=== PATIENT | male | born 1995 | race Caucasian/White ===

== ENCOUNTER 2024-10-15 12:42 | Inpatient (IN) | payer BC, SELFPAY ==
[2024-10-15] VITALS (10 sets, daily range): BP systolic 98–133; BP diastolic 62–76; PULSE 73–158; RESP 12–20; TEMP 36.7; O2SAT 95–100; BMI 24.0
--- NOTE | 2024-10-15 12:50 | XR_ITS ---
WS: [id number] Exam: XR chest 1V portable [id number] Date/Time of Exam: 10/15/2024 12:57 PM Reason For Exam: palpitations No priors. Lungs are fully inflated and clear. Normal cardiomediastinal silhouette and bony structures. No pleural effusion. XR/XR chest 1V portable [id number] IMPRESSION: 1. Normal chest.
--- NOTE | 2024-10-15 12:50 | ECG_ITS ---
[facility] Test Date: 2024-10-15 Pat Name: Manfred Fletcher Department: Room: Gender: Male Director Informatics: : 1995 Requested By: Cedric Ashraf Order Number: [id number] Valeria MD: Nanda Johnson M.D. Measurements Intervals Hubbard Rate: 149 P: 0 MD: 0 QRS: 94 QRSD: 94 T: 30 QT: 267 QTc: 421 Interpretive Statements ATRIAL FIBRILLATION WITH RAPID VENTRICULAR RESPONSE BORDERLINE RIGHT AXIS DEVIATION [QRS AXIS > 90] INCOMPLETE RIGHT BUNDLE BRANCH BLOCK [90+ ms QRS DURATION, TERMINAL R IN V1/V2, 40+ ms S IN I/aVL/V4/V5/V6] MINIMAL ST DEPRESSION [0.025+ mV ST DEPRESSION] ABNORMAL RHYTHM ECG No previous ECG available for comparison Electronically Signed On 10-15-2024 20:01:30 CDT by Nanda Johnson M.D. [id number]
--- OUTSIDE RECORDS SUMMARY | 2024-10-15 12:51 | XMS_ITS | Clinical Summary ---
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 Name Role Phone Unavailable Primary Care Provider Unavailabl e Allergies Active Allergy Reactions Criticality Noted Date Comments Penicillins Rash Low 03/14/2024 Medications No known medications Active Problems No known active problems Encounters Date Type Department Care Team Description 09/24/2024 External Device Data ST[facility] ABSTRACTION Provider, Abstract 08/28/2024 External Device Data [facility] ABSTRACTION Provider, Abstract 08/28/2024 External Device Data [facility] ABSTRACTION Provider, Abstract from Last 3 Months Social History Tobacco Use Types Packs/Day Years Used Date Smoking Tobacco: Never Assessed Sex and Gender Information Value Date Recorded Sex Assigned at Not on file Legal Sex Male 12:27 PM 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 Gender Identity Not on file Sexual Orientation Not on file Last Filed Vital Signs Vital Sign Reading Time Taken Comments Blood Pressure 133/85 03/14/2024 12:34 PM 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 Pulse 87 03/14/2024 12:34 PM 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 Temperature 36.8 C (98.2 F) 03/14/2024 12:34 PM [employer]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 Respiratory Rate 19 03/14/2024 12:34 PM [employer]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 Oxygen Saturation 100% 03/14/2024 12:34 PM 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 Inhaled Oxygen Concentration - - Weight 74.8 kg (165 lb) 03/14/2024 12:34 PM [employer]AX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 Height 180.3 cm (5' 11 ) 03/14/2024 12:34 PM [employer]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 Body Mass Index 23.01 03/14/2024 12:34 PM [employer]AX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 Plan of Treatment Health Maintenance Due Date Last Done Comments DTAP/TDAP/TD VACCINES (1 - Tdap) 08/12/2014 HEPATITIS B VACCINES (1 of 3 - 19+ 3-dose series) 08/12/2014 INFLUENZA VACCINE (#1) 2024 HPV VACCINES Aged Out No longer eligi ble based on patient's age to complete this topic
[2024-10-15] MEDS: dilTIAZem 5 mg/mL SDV 5 mL 20 MG IVP (12:57)
--- NOTE | 2024-10-15 12:59 | ED_ITS ---
HPI - Arrhythmia/Palpitations 2 General: Chief Complaint: Arrhythmia/Palpitations Stated Complaint: Afib Time Seen by Provider: 10/15/24 12:47 Source: patient Mode of arrival: ambulatory Limitations: no limitations History of Present Illness: 29-year-old male who states that he is h aving palpitations on the last 2 days patient seen in his primary care office found of A-fib with RVR and was sent here. He states he does not like his heart is racing no history of A-fib he denies any chest pain denies any drug or alcohol abuse. Associated symptoms: Deny nausea or vomiting Related Data Home Medications ?Medication ?Instructions ?Recorded ?Confirmed No Known Home Medications 10/15/240 01/01 Allergies Allergy/AdvReac Type Severity Reaction Status Date / Time Penicillins Allergy ALGY-Rash Verified 10/15/24 11:34 Review of Systems 2 Const: Denies: fever(s), chills, body aches or change in appetite ENMT: Denies: throat pain or dental pain Card: Reports: irregular heart rhythm; Denies: chest pain Resp: Denies: dyspnea GI: Denies: abdominal pain, nausea, vomiting or diarrhea : Denies: dysuria Musc: Denies: neck pain or back pain Skin/Breast: Denies: rash Neuro: Denies: headache(s) PFSH ED 2 PFSH: Social History Smoking and tobacco/nicotine status: never used tobacco/nicotine Physical Exam 2 Const: COMMON NORMALS: patient oriented x3 HENMT: COMMON NORMALS: normocephalic and atraumatic HEAD & SCALP: n ormocephalic and atraumatic Eye: COMMON NORMALS: Equal, round and reactive pupils present and EOMs intact bilaterally PUPIL: Yes Equal, round and reactive pupils present Neck/C-Spine: COMMON NORMALS: full ROM and supple Chest: COMMONS NORMALS: normal inspection of the chest Resp: COMMON NORMALS: normal respiratory effort, No retractions, No use of accessory muscles and clear to auscultation bilaterally AUSCULTATION: clear to auscultation bilaterally Cardio: COMMON NORMALS: No murmurs present (Cardio) RATE: tachycardic R HYTHM: abnormal rhythm irregularly irregular GI: COMMON NORMALS: Normal to inspection, nondistended, normoactive bowel sounds present, Soft to palpation, non-tender and no masses PALPATION: Yes Soft to palpation Extremity: COMMON NORMALS: normal to inspection and full ROM Neuro: COMMON NORMALS: patient oriented x3, moves all extremities and no focal motor deficits Psych: COMMON NORMALS: mental status grossly normal, Normal thought process present and cooperative THOUGHT PROCESS: Normal thought process present Skin: COMMON NORMALS: no rashes or lesions noted and no wounds GENERAL SKIN EXAM: no rashes or lesions noted Course 2 Vital Signs: Vital signs: Vital Signs Temperature 98.1 F 10/15/24 12:43 Pulse Rate 158 H 10/15/24 12:43 Respiratory Rate 20 H 10/15/24 12:43 Blood Pressure 113/62 10/15/24 12:43 Pulse Oximetry 100 10/15/24 12:43 Oxygen Delivery Me thod Room Air 10/15/24 12:43 MDM - Arrhythmia/Palpitations Medical Decision Making Patient presents here with new onset A-fib with RVR patient was given Cardizem here on Cardizem drip his heart rate has improved spoke to hospitalist will admit. Medical Records I reviewed the patient's medical records. Lab Data I reviewed the patient's lab results. 10/15/24 12:34 10/15/24 12:34 Radiology Impressions Chest X-Ray 10/15/24 12:50 IMPRESSION: 1. Normal chest. Laboratory Results WBC 8.13 10^3/uL (3.29-11.43) 10/15/24 12:34 RBC 5.65 10^6/uL (3.85-5.65) 10/15/24 12:34 Hgb 15.90 g/dL (11.27-16.99) 10/15/24 12:34 Hct 47.3 % (37-53) 10/15/24 12:34 MCV 83.7 fl (82-101) 10/15/24 12:34 MCH 28.1 pg (27-33) 10/15/24 12:34 MCHC 33.6 g/dL (30-55) 10/15/24 12:34 RDW 12.7 % (12.1-15.1) 10/15/24 12:34 Plt Count 212 10^3/cmm (157-399) 10/15/24 12:34 MPV 10.5 fL (7.4-10.4) H 10/15/24 12:34 Neut % (Auto) 58.7 % 10/15/24 12:34 Lymph % (Auto) 28.8 % 10/15/24 12:34 [place] % (Auto) 9.6 % 10/15/24 12:34 Eos % (Auto) 2.1 % 10/15/24 12:34 Baso % (Auto) 0.4 % 10/15/24 12:34 Neut # (Auto) 4.78 10^3/uL (1.8-7.7) 10/15/24 12:34 Lymph # (Auto) 2.3 10^3/uL (0.8-4.8) 10/15/24 12:34 [place] # (Auto) 0.8 10^3/uL (0.2-0.9) 10/15/24 12:34 Eos # (Auto) 0.2 10^3/uL (0.0-0.8) 10/15/24 12:34 Baso # (Auto) 0.0 10^3/uL (0.0-0.1) 10/15/24 12:34 Nucleated RBC % (auto) 0 % 10/15/24 12:34 Nucleated RBCs # 0.0 /100WBC 10/15/24 12:34 Sodium 142 mmol/L (136-145) 10/15/24 12:34 Potassium 3.7 mmol/L (3.5-5.1) 10/15/24 12:34 Chloride 104 mmol/L (98-107) 10/15/24 12:34 Carbon Dioxide 25 mmol/L (22-29) 10/15/24 12:34 Anion Gap 16.7 (5-19) 10/15/24 12:34 BUN 16 mg/dL (6-20) 10/15/24 12:34 Creatinine 1.0 mg/dL (0.7-1.2) 10/15/24 12:34 GFR Calculation 88.3 mL/min (90-130) L 10/15/24 12:34 Glucose 88 mg/dL (65-115) 10/15/24 12:34 Calculated Osmolality 295 mOsm/kg (285-295) 10/15/24 12:34 Calcium 9.7 mg/dL (8.5-10.5) 10/15/24 12:34 Total Bilirubin 0.4 mg/dL (0.15-1.2) 10/15/24 12:34 AST 21 U/L (0-40) 10/15/24 12:34 ALT 24 U/L (0-41) 10/15/24 12:34 Alkaline Phosphatase 52 U/L (40-130) 10/15/24 12:34 Total Protein 7.1 g/dL (6.6-8.7) 10/15/24 12:34 Albumin 4.6 g/dL (3.5-5.2) 10/15/24 12:34 Globulin 2.5 g/dL (1.3-4.6) 10/15/24 12:34 TSH 2.66 uIU/mL (0.27-4.20) 10/15/24 12:34 All radiology interpretation(s) finalized by discharge EKG Data EKG 1: I personally reviewed and interpreted this EKG as follows: EKG interpretation date: 10/15/24 EKG interpretation time: 12:47 Interpretation: afib with rvr hr [address] or t wave abnormalities qrs 94 qtc 352 Other EKG comments: Chest X-Ray 10/15/24 12:50 IMPRESSION: 1. Normal chest. Discharge Plan Discharge Patient Disposition: Admitted As Inpatient Clinical Impression: Atrial fibrillation with RVR Condition: Stable Coding Level of Care Code ED Housekeeping Assistant for Jonathan Estrella
[2024-10-15] MEDS: dilTIAZem 100 MG in sodium chloride 0.9% (add-van) 100 ML IV (13:00)
[2024-10-15 13:03] LABS: Hematocrit 47.3 % (37-53); Hemoglobin 15.90 g/dL (11.27-16.99); Mean Corpuscular HGB Conc 33.6 g/dL (30-55); Mean Corpuscular Hemoglobin 28.1 pg (27-33); Mean Corpuscular Volume 83.7 fl (82-101); Nucleated Red Blood Cells % 0 %; Platelet Count 212 10^3/cmm (157-399); Red Blood Count 5.65 10^6/uL (3.85-5.65); White Blood Count 8.13 10^3/uL (3.29-11.43)
[2024-10-15 13:29] LABS: Alanine Aminotransferase 24 U/L (0-41); Albumin Level 4.6 g/dL (3.5-5.2); Alkaline Phosphatase 52 U/L (40-130); Anion Gap 16.7 (5-19); Aspartate Amino Transferase 21 U/L (0-40); Blood Urea Nitrogen 16 mg/dL (6-20); Calcium 9.7 mg/dL (8.5-10.5); Carbon Dioxide 25 mmol/L (22-29); Chloride 104 mmol/L (98-107); Creatinine Clr Calc Pharmacy 117.7636; Globulin 2.5 g/dL (1.3-4.6); Glucose 88 mg/dL (65-115); Osmolality Calculated 295 mOsm/kg (285-295); Potassium 3.7 mmol/L (3.5-5.1); Sodium 142 mmol/L (136-145); Thyroid Stimulating Hormone 2.66 uIU/mL (0.27-4.20); Total Protein 7.1 g/dL (6.6-8.7)
--- NOTE | 2024-10-15 14:20 | P.HP_ITS ---
Providers/Chief Complaint 2 Chief Complaint: Afib History of Present Illness Manfred Fletcher is a 29 year old male with no significant past medical history presents to the ER today from his PCPs office because of palpitations. He was found to have A-fib with RVR at his PCPs office hence he was sent to the ER. As per the patient he woke up earlier today morning at 5 AM, worked out a little more than he like he usually do and few minutes later he started feeling palpitations along with some difficulty in breathing. Patient states in the past as well if he has missed his workout for a week on first day he does have palpitations. States he has been working out for over 13 years. Denies use of any IV drugs, smoking, history of any cardiac issues or family history of sudden cardiac , any [id number] products other than protein shakes or analog use. In the ER he was found to have A-fib with RVR with heart rate of more than 150 and was started on Cardizem drip. On examination seen with family at bedside with heart rate mostly running in mid to high 90s. Review of Systems 2 General: Reports: 10 or more systems reviewed and unremarkable except in HPI and below Const: Denies: fever(s), chills, body aches, change in appetite, change in weight, malaise, night sweats, diaphoresis, change in sleep pattern, daytime sleepiness or snoring Eyes: Denies: change in vision, blurry vision, photophobia, eye discomfort or eye discharge ENMT: Denies: throat pain, enlarged tonsils, hoarseness, mouth pain, oral sores, dry mouth, tinnitus, nasal congestion or post nasal drip Card: Denies: chest pain, palpitations, irregular heart rhythm, edema, swelling of feet/ankles, lightheadedness, syncope, pre-syncope, dyspnea on exertion, orthopnea, leg pain with exertion or acrocyanosis Resp: Denies: dyspnea, productive cough, non-productive cough, wheezing, stridor, pain on inspiration, change in phlegm color, hemoptysis or chest congestion GI: Denies: abdominal pain, nausea, vomiting, hematemesis, coffee ground emesis, dysphagia, heartburn, diarrhea, constipation, bloating, GI cramping, change in bowel habits, pain on defecation, hematochezia or melena : Denies: flank pain, difficulty urinating, dysuria, urinary frequency, urinary urgency, urinary hesitancy, urinary dribbling, difficulty starting urination, change in urine stream, nocturia or hematuria Musc: Denies: neck pain, back pain, extremity pain, joint pain, joint swelling, joint redness, joint stiffness or limited range of motion Neuro: Denies: headache(s), numbness in extremities, weakness in extremities, sensory changes, lack of coordination, difficulty walking, frequent falls, dizziness, vertigo, confusion, Slurred speech present, difficulty communicating thoughts or seizure-like activity Psych: Denies: anxiety, depression, mood swings, panic attacks, hopelessness or irritability Endo: Denies: polyuria, polydipsia, tired all the time, cold intolerance, excessive sweating, flushing or heat intolerance Ivan/Lymph: Denies: easy bruising or easy bleeding All/Imm: Denies: tongue swelling, facial swelling or acute wheezing Medications/Allergies Home Medications ?Medication ?Instructions ?Recorded ?Confirmed ?Last Taken ?Type No Known Home Medications 10/15/2401/01 Unknown History Allergies Allergy/AdvReac Type Severity Reaction Status Date / Time Penicillins Allergy ALGY-Rash Verified 10/15/24 11:34 PFSH Acute 2 PFSH: Medical History (Updated 10/15/24 @ 15:00 by Dino Trammell MD) No significant past medical history Surgical History (Updated 10/15/24 @ 15:00 by Dino Trammell MD) No significant past surgical history Family History (Updated 10/15/24 @ 15:00 by Dino Trammell MD) Denies family history of CAD (coronary artery disease) Cancer Cardiomyopathy Social History (Updated 10/15/24 @ 15:00 by Dino Trammell MD) Smoking and tobacco/nicotine status: never used tobacco/nicotine Substance/Drug Use: never Adopted: No Caregiver/support person: Yes Lives independently: Yes Household members: family Housing: House Vitals/I&O/Wt Last Vital Signs Temp 98.1 F 10/15/24 12:43 Pulse 158 H 10/15/24 12:43 Resp 20 H 10/15/24 12:43 BP 113/62 10/15/24 12:43 Pulse Ox 100 10/15/24 12:43 O2 Del Method Room Air 10/15/24 12:43 Weight last 48 hrs Weight 78.018 kg Physical Exam 2 Narrative: General: No acute distress, AO x3 HEENT: PERRLA, pupils bilaterally equal and reactive Chest: Normal vesicular breath sounds, no added sounds, equal good air entry bilaterally CVS: S1-S2 irregularly irregular, no murmurs, no tachycardia, no gallops, no rubs Abdomen: Soft, nontender, no organomegaly, bowel sounds present Neuro: No focal deficits, no facial deformity, AO x3, power 5/5 in all limbs Data 10/15/24 12:34 10/15/24 12:34 A&P Assessment and plan 1. Atrial fibrillation with RVR: Normal TSH. Check urine drug screen. Denies any recreational drug use or gril-eoc-hydkurn product use. Currently on Cardizem drip of 5. Start on Cardizem 30 mg Q6 hourly. Been keeping heart rate below 100. Echocardiogram once heart rate is below 100. Will consult cardiology for possible cardioversion given patient's age of 29 and first episode of A-fib. 2. Paroxysmal atrial fibrillation: Plan: Full code Cardiac diet Low chances of VTE Famotidine for PUD prophylaxis PDMP PDMP Reviewed: Not Reviewed Attestations 2 Medical Necessity Statement*: Admission for more than 2 midnights for management of A-fib with RVR in a young man with possible need for cardioversion Diagnoses Atrial fibrillation with RVR I48.91 Paroxysmal atrial fibrillation I48.0 Atrial fibrillation type: paroxysmal
--- NOTE | 2024-10-15 14:22 | USCV_ITS ---
Manfred Fletcher Age: 29 Gender: M : 1995 Exam Date: 10/15/2024 19:51 Ordering Phys: Dino Trammell MD Technologist: [place] Exam Location: [facility] [place] Indication: Afib, BP: 112 / 72 HR: 58 Rhythm: Sinus Technical Quality: Good MEASUREMENTS (Male / Female) Normal Values 2D ECHO LV Diastolic Diameter PLAX 4.7 cm 4.2 - 5.9 / 3.9 - 5.3 cm IVS Diastolic Thickness 0.9 cm 0.6 - 1.0 / 0.6 - 0.9 cm IVS Systolic Thickness 1.7 cm LVPW Diastolic Thickness 1.1 cm 0.6 - 1.0 / 0.6 - 0.9 cm LVPW Systolic Thickness 1.6 cm LVOT Diameter 1.7 cm LV Ejection Fraction 2D Teich 55.8 % LV Ejection Fraction MOD 4C 59.0 % LV Ejection Fraction MOD 2C 65.2 % LV Ejection Fraction 2C AL 65.6 % LA Diameter 2.3 cm Aorta at Sinotubular Diameter 3.1 cm IVC Diameter 1.1 cm M-MODE LA Ao Ratio MM 1.1 AV Cusp Separation MM 2.0 cm DOPPLER AV Peak Velocity 127.0 cm/s LVOT Peak Velocity 102.0 cm/s AV Area Cont Eq vti 2.2 cm squared AV Area Cont Eq pk 1.9 cm squared MV Peak Velocity 122.0 cm/s MV Area PHT 3.5 cm squared Mitral E to A Ratio 2.6 TR Peak Velocity 206.0 cm/s TR Peak Gradient 17.0 mmHg TV Peak E Velocity 58.0 cm/s PV Peak Velocity 91.0 cm/s FINDINGS Left Ventricle Left ventricle is normal in size. LV systolic function is normal with EF of 55-60%. No regional wall motion abnormalities are seen. Right Ventricle Normal in size and function Right Atrium Normal in size Left Atrium Normal in size Mitral Valve Structurally normal mitral valve. Mild mitral regurgitation. Aortic Valve Structurally normal aortic valve. No significant stenosis or regurgitation. Tricuspid Valve Insufficient TR jet to calculate RVSP Pulmonic Valve Not well visualized Pericardium Normal Aorta Normal in size IVC Appears to be normal CONCLUSIONS LV systolic function is normal with EF of 55-60% Mild mitral regurgitation No comparison studies are available. Guillermo Dickinson MD (Electronically Signed) Final Date: 16 October 2024 16:38 S
[2024-10-15 14:49] LABS: Procalcitonin 0.07 ng/mL (0-0.5)
[2024-10-15 15:43] LABS: Glucose Urine UA Negative (Normal); Nitrate Urine Negative (Negative); Specific Gravity, Urine 1.020 (1.005-1.030)
--- NOTE | 2024-10-15 15:44 | P.CONIM_ITS ---
<Statement entered by Guillermo Dickinson M.D - 10/19/24 13:41> Patient was evaluated and cared for in conjunction with an advanced practice practitioner.? I personally examined the patient and reviewed the chart and all pertinent data including imaging, telemetry, and laboratory results.? I discussed the patient in detail with the advanced practice practitioner.? Please see? their note for complete consult note, testing results and agreed upon plan of care for the patient. ? GENERAL: Patient is alert, awake and oriented x3. HEART: Irregularly irregular, tachycardia LUNGS: Clear to auscultate bilaterally. CENTRAL NERVOUS SYSTEM: Grossly nonfocal. EXTREMITIES: Lower extremities with out edema bilaterally. If patient does not convert back to sinus rhythm, we will proceed with RAMBO cardioversion tomorrow. NPO past midnight. As outpatient will need EP referral for possible ablation. Providers/Reason For Consult 2 Consulting Physician/Specialty*: Dr Dickinson, cardiology Reason for Consult*: new onset atrial fibrillation Requesting Physician: Dino Trammell MD Attending Physician: Dino Trammell MD History of Present Illness History of Present Illness Manfred Fletcher is a 29 year old male with no significant past medical history. He [facility] to [facility] this morning with rapid heart rate since 630 this morning. He notes he has had episodes like this twice before usually in conjunction with exercise, always resolved spontaneously. Each time he has felt lightheaded with movement with some shortness of breath and sensation of pounding heart. Has not had any chest pain or syncope. He has never been diagnosed with asthma, however has felt perhaps he had exercised induced asthma which has improved as he has gotten older. He used an albuterol inhaler and took a dose of cetirizine this morning for allergies. He denies any drug use, alcohol use, smoking. No history of thyroid abnormality, does not use any supplements [id number]. He drinks perhaps 2 cups of coffee in a day and consumes quite a bit of green tea. He denies use of energy drinks. His mother at the bedside notes history of Raynaud's syndrome, joint laxity and a curved out sternum which was more pronounced when he was younger, seems to be consistent with pectus carinatum. Family history of an unknown autoimmune condition in patient's father, resulting in insulin-dependent diabetes. Patient is not diabetic and has never had any cardiac workup previous to this. Review of Systems 2 Const: Denies: fever(s), chills, change in weight, fatigue or diaphoresis Eyes: Denies: change in vision ENMT: Denies: epistaxis Card: Reports: palpitations and irregular heart rhythm; Denies: chest pain, edema, syncope, pre-syncope, dyspnea on exertion, orthopnea or leg pain with exertion Resp: Denies: dyspnea, productive cough or wheezing GI: Denies: nausea, vomiting, hematemesis, hematochezia or melena : Denies: hematuria Musc: Denies: extremity swelling Ivan/Lymph: Denies: easy bruising or easy bleeding Medications/Allergies Home Medications ?Medication ?Instructions ?Recorded ?Confirmed ?Last Taken ?Type No Known Home Medications 10/15/24 0701/01 Unknown History Allergies Allergy/AdvReac Type Severity Reaction Status Date / Time Penicillins Allergy ALGY-Rash Verified 10/15/24 11:34 Current Medications Generic Name Dose Route Start Last Admin Trade Name Freq PRN Reason Stop Dose Admin Diltiazem HCl 30 mg 10/15/24 14:47 10/15/24 15:10 Diltiazem 30 Mg Tablet PO 30 mg Q6H ANTON Administration Diltiazem HCl 100 mg/ Sodium 100 mls @ 0 mls/hr 10/15/24 13:00 10/15/24 15:03 Chloride IV 7.5 mg/hr .Q0M ANTON 7.5 mls/hr Protocol Titration Per Protocol PFSH Acute 2 PFSH: Medical History No significant past medical history Surgical History No significant past surgical history Family History Denies family history of CAD (coronary artery disease) Cancer Cardiomyopathy Social History Smoking and tobacco/nicotine status: never used tobacco/nicotine Substance/Drug Use: never Adopted: No Caregiver/support person: Yes Lives independently: Yes Household members: family Housing: House Vitals/I&O/Wt Last Vital Signs Temp 98.1 F 10/15/24 12:43 Pulse 158 H 10/15/24 12:43 Resp 20 H 10/15/24 12:43 BP 113/62 10/15/24 12:43 Pulse Ox 100 10/15/24 12:43 O2 Del Method Room Air 10/15/24 12:43 10/15/24 10/15/24 10/15/24 06:59 14:59 22:59 Intake Total .01.31 Balance 01.31 Weight last 48 hrs Weight 172 lb Physical Exam 2 Const: COMMON NORMALS: no acute distress and patient oriented x3 Chest: COMMONS NORMALS: normal inspection of the chest and normal palpation of entire chest wall CHEST: Yes Symmetrical chest wall rise Resp: COMMON NORMALS: normal respiratory effort, No retractions, No use of accessory muscles and clear to auscultation bilaterally EFFORT & INSPECTION: Yes symmetric chest movement AUSCULTATION: clear to auscultation bilaterally Cardio: COMMON NORMALS: S1 normal heart sound present, S2 normal heart sound present, No gallops present (Cardio), No clicks present (Cardio), No murmurs present (Cardio) and No rub (Cardio) RHYTHM: abnormal rhythm irregularly irregular HEART SOUNDS: S1 normal heart sound present and S2 normal heart sound present PERIPHERAL PULSES: radial pulses present, posterior tibial pulses present and dorsalis pedis present Neuro: COMMON NORMALS: patient oriented x3 and moves all extremities Psych: COMMON NORMALS: mental status grossly normal and cooperative Data 10/15/24 12:34 10/15/24 12:34 A&P Assessment and plan 1. Paroxysmal atrial fibrillation: Plan: He remains in atrial fibrillation, ventricular rate is well-controlled while on diltiazem infusion at 5 mg/h. Currently asymptomatic. Blood pressure stable. Suspicion for possible Marfan syndrome, echocardiogram has been ordered. If he remains in atrial fibrillation by tomorrow, plan is for possible RAMBO guided cardioversion. He resides in [place] and would need referral to a pump station operator there for continuity of care. Urine tox is negative. Other labs unremarkable. PDMP PDMP Reviewed: Not Reviewed Coding Level of Care Code Acute Code for Chg Fwd Diagnoses Paroxysmal atrial fibrillation I48.0 Atrial fibrillation type: paroxysmal
[2024-10-15 15:49] LABS: Add Urine Microscopic? YES
[2024-10-15 15:50] LABS: PCP Screen Urine Negative (Negative)
--- NOTE | 2024-10-15 16:00 | PC.NURSE ---
Patient transferred from ED to CSU via a bed at 1601. Patient was able to ambulate on his own from the hallway to room bed without difficulty. Patient currently has cardizem drip running at 7.5
[2024-10-16] VITALS: BP 105/53; PULSE 50; RESP 15; TEMP 36.7; O2SAT 97
[2024-10-16 03:59] LABS: Hematocrit 45.3 % (37-53); Hemoglobin 14.60 g/dL (11.27-16.99); Mean Corpuscular HGB Conc 32.2 g/dL (30-55); Mean Corpuscular Hemoglobin 27.8 pg (27-33); Mean Corpuscular Volume 86.3 fl (82-101); Nucleated Red Blood Cells % 0 %; Platelet Count 196 10^3/cmm (157-399); Red Blood Count 5.25 10^6/uL (3.85-5.65); White Blood Count 6.43 10^3/uL (3.29-11.43)
[2024-10-16 04:00] VITALS: BP 104/55; PULSE 53; RESP 15; TEMP 36.7; O2SAT 97
[2024-10-16 04:33] LABS: Alanine Aminotransferase 20 U/L (0-41); Albumin Level 4.0 g/dL (3.5-5.2); Alkaline Phosphatase 42 U/L (40-130); Anion Gap 16.0 (5-19); Aspartate Amino Transferase 15 U/L (0-40); Blood Urea Nitrogen 14 mg/dL (6-20); Calcium 9.0 mg/dL (8.5-10.5); Carbon Dioxide 24 mmol/L (22-29); Chloride 107 mmol/L (98-107); Creatinine Clr Calc Pharmacy 90.5874; Globulin 2.1 g/dL (1.3-4.6); Glucose 96 mg/dL (65-115); Magnesium 2.1 mg/dL (1.7-2.3); Osmolality Calculated 296 mOsm/kg (285-295); Potassium 4.0 mmol/L (3.5-5.1); Sodium 143 mmol/L (136-145); Total Protein 6.1 g/dL (6.6-8.7)
[2024-10-16 04:34] LABS: Procalcitonin 0.07 ng/mL (0-0.5)
--- NOTE | 2024-10-16 05:35 | PC.NURSE ---
Patient converted to SR at 18:45. Dr Trammell was notified and cardizem was discontinued, oral and gtt. New orders were placed. Patient HR was dropping into the 40's. Dr Johnston was notified. No new orders placed.
[2024-10-16 06:00] VITALS: PULSE 52; BMI 23.8
--- NOTE | 2024-10-16 08:05 | P.PN_ITS ---
<Statement entered by Guillermo Dickinson M.D - 10/19/24 13:46> Patient was cared for in conjunction with an advanced practice practitioner.? I reviewed the chart and all pertinent data including imaging, telemetry, and laboratory results.? I discussed the patient in detail with the advanced practice practitioner.? Please see their note for complete progress note, testing results and agreed upon plan of care for the patient. Subjective 2 Subjective: He converted to sinus rhythm overnight so RAMBO guided cardioversion was canceled. Diltiazem has been turned off. Echocardiogram pending read. He feels well this morning. Creatinine 1.3, will give 500 mL fluid bolus. Vitals/I&O/Wt Last Vital Signs Temp 98.0 F 10/16/24 04:00 Pulse 56 L 10/16/24 11:41 Resp 15 10/16/24 11:41 BP 115/60 10/16/24 11:41 Pulse Ox 97 10/16/24 11:41 O2 Del Method Room Air 10/16/24 04:00 10/15/24 10/16/24 10/16/24 22:59 06:59 14:59 Intake Total 522.833 / 522.833 Balance 522.833 / 522.833 Weight last 48 hrs Weight 171 lb 6 oz Weight 172 lb Physical Exam 2 Const: COMMON NORMALS: no acute distress and patient oriented x3 GENERAL APPEARANCE: cooperative and comfortable ORIENTATION/CONSCIOUSNESS: Yes awake, Yes oriented to person, Yes oriented to place and Yes oriented to time Chest: COMMONS NORMALS: normal inspection of the chest and normal palpation of entire chest wall CHEST: Yes Symmetrical chest wall rise Resp: COMMON NORMALS: normal respiratory effort, No retractions, No use of accessory muscles and clear to auscultation bilaterally EFFORT & INSPECTION: Yes symmetric chest movement AUSCULTATION: clear to auscultation bilaterally Cardio: COMMON NORMALS: regular rate, regular rhythm, S1 normal heart sound present, S2 normal heart sound present, No gallops present (Cardio), No clicks present (Cardio), No murmurs present (Cardio) and No rub (Cardio) RATE: r egular rate RHYTHM: regular rhythm HEART SOUNDS: S1 normal heart sound present and S2 normal heart sound present PERIPHERAL PULSES: radial pulses present Extremity: COMMON NORMALS: no pedal edema Neuro: COMMON NORMALS: patient oriented x3 and moves all extremities S ENSORIUM/ORIENTATION: Yes oriented to person, Yes oriented to place and Yes oriented to time Data 10/16/24 03:11 10/16/24 03:11 A&P Assessment and plan 1. Paroxysmal atrial fibrillation: Plan: He can discharge home to [place] today with 30-day event monitor. I have referred him to Dr. Colon at [facility] for evaluation for atrial fibrillation ablation. He should continue full-strength aspirin. PDMP PDMP Reviewed: Not Reviewed Attestations 2 Medical Necessity Statement*: Discharge today Coding Level of Care Code Acute Code for Chg Fwd Diagnoses Paroxysmal atrial fibrillation I48.0 Atrial fibrillation type: paroxysmal
[2024-10-16 08:37] VITALS: BP 109/69; PULSE 63; RESP 24; O2SAT 94
--- NOTE | 2024-10-16 10:07 | PM.DCS ---
Discharge Providers Date of Admission: 10/15/24 15:00 Date of Discharge: October 16, 2024 Attending Provider at Admission: Dino Trammell MD Attending Provider at Discharge: Dino Trammell MD Consults: Cardiology: Dr. Dickinson Diagnoses at Discharge Discharge Diagnosis 1. Paroxysmal atrial fibrillation: Reason for Visit Reason for Visit: Afib Hospital Course Hospital Course Manfred Fletcher is a 29 year old male with no significant past medical history presents to the ER today from his PCPs office because of palpitations. He was found to have A-fib with RVR at his PCPs office hence he was sent to the ER. As per the patient he woke up earlier today morning at 5 AM, worked out a little more than he like he usually do and few minutes later he started feeling palpitations along with some difficulty in breathing. Patient states in the past as well if he has missed his workout for a week on first day he does have palpitations. States he has been working out for over 13 years. Denies use of any IV drugs, smoking, history of any cardiac issues or family history of sudden cardiac , any [id number] products other than protein shakes or analog use. In the ER he was found to have A-fib with RVR with heart rate of more than 150 and was started on Cardizem drip. On examination seen with family at bedside with heart rate mostly running in mid to high 90s. Overnight patient converted back to normal sinus rhythm and has maintained normal sinus rhythm. He denies any further complaints. During hospitalization his TSH was found to be normal. Echocardiogram was done and is pending. He has been discharged in hemodynamically stable condition with metoprolol 12.5 mg twice daily as needed for heart rate of more than 100 bpm, event monitor. He is also being referred to [facility] as an outpatient for further management. Discharge Data Studies Completed and Pending Completed Studies During Hospitalization Category Date Time Status XR chest 1V portable [id number] Stat Exams 10/15/24 12:50 Completed Pending at discharge Category Date Time Status Complete Blood Count w/Auto AM LABS Lab 10/17/24 04:00 Ordered Complete Blood Count w/Auto AM LABS Lab 10/18/24 04:00 Ordered Comprehensive Metabolic Panel AM LABS Lab 10/17/24 04:00 Ordered Comprehensive Metabolic Panel AM LABS Lab 10/18/24 04:00 Ordered Magnesium AM LABS Lab 10/17/24 04:00 Ordered Magnesium AM LABS Lab 10/18/24 04:00 Ordered Phosphorus AM LABS Lab 10/17/24 04:00 Ordered Phosphorus AM LABS Lab 10/18/24 04:00 Ordered CV. echo complete* [id number] Routine Ultrasound 10/15/24 14:22 Taken Radiology Impressions Chest X-Ray 10/15/24 12:50 IMPRESSION: 1. Normal chest. Laboratory Results WBC 6.43 10^3/uL (3.29-11.43) 10/16/24 03:11 RBC 5.25 10^6/uL (3.85-5.65) 10/16/24 03:11 Hgb 14.60 g/dL (11.27-16.99) 10/16/24 03:11 Hct 45.3 % (37-53) 10/16/24 03:11 MCV 86.3 fl (82-101) 10/16/24 03:11 MCH 27.8 pg (27-33) 10/16/24 03:11 MCHC 32.2 g/dL (30-55) 10/16/24 03:11 RDW 12.8 % (12.1-15.1) 10/16/24 03:11 Plt Count 196 10^3/cmm (157-399) 10/16/24 03:11 MPV 10.3 fL (7.4-10.4) 10/16/24 03:11 Neut % (Auto) 47.2 % 10/16/24 03:11 Lymph % (Auto) 40.4 % 10/16/24 03:11 [place] % (Auto) 7.6 % 10/16/24 03:11 Eos % (Auto) 3.6 % 10/16/24 03:11 Baso % (Auto) 0.6 % 10/16/24 03:11 Neut # (Auto) 3.03 10^3/uL (1.8-7.7) 10/16/24 03:11 Lymph # (Auto) 2.6 10^3/uL (0.8-4.8) 10/16/24 03:11 [place] # (Auto) 0.5 10^3/uL (0.2-0.9) 10/16/24 03:11 Eos # (Auto) 0.2 10^3/uL (0.0-0.8) 10/16/24 03:11 Baso # (Auto) 0.0 10^3/uL (0.0-0.1) 10/16/24 03:11 Nucleated RBC % (auto) 0 % 10/16/24 03:11 Nucleated RBCs # 0.0 /100WBC 10/16/24 03:11 Sodium 143 mmol/L (136-145) 10/16/24 03:11 Potassium 4.0 mmol/L (3.5-5.1) 10/16/24 03:11 Chloride 107 mmol/L (98-107) 10/16/24 03:11 Carbon Dioxide 24 mmol/L (22-29) 10/16/24 03:11 Anion Gap 16.0 (5-19) 10/16/24 03:11 BUN 14 mg/dL (6-20) 10/16/24 03:11 Creatinine 1.3 mg/dL (0.7-1.2) H 10/16/24 03:11 GFR Calculation 65.3 mL/min (90-130) L 10/16/24 03:11 Glucose 96 mg/dL (65-115) 10/16/24 03:11 Calculated Osmolality 296 mOsm/kg (285-295) H 10/16/24 03:11 Calcium 9.0 mg/dL (8.5-10.5) 10/16/24 03:11 Phosphorus 4.3 mg/dL (2.5-4.5) 10/16/24 03:11 Magnesium 2.1 mg/dL (1.7-2.3) 10/16/24 03:11 Total Bilirubin 0.4 mg/dL (0.15-1.2) 10/16/24 03:11 AST 15 U/L (0-40) 10/16/24 03:11 ALT 20 U/L (0-41) 10/16/24 03:11 Alkaline Phosphatase 42 U/L (40-130) 10/16/24 03:11 Total Protein 6.1 g/dL (6.6-8.7) L 10/16/24 03:11 Albumin 4.0 g/dL (3.5-5.2) 10/16/24 03:11 Globulin 2.1 g/dL (1.3-4.6) 10/16/24 03:11 Procalcitonin 0.07 ng/mL (0-0.5) 10/16/24 03:11 TSH 2.66 uIU/mL (0.27-4.20) 10/15/24 12:34 Urine Color Yellow (Yellow) 10/15/24 15:25 Urine Appearance Turbid (CLEAR) A 10/15/24 15:25 Urine pH 7.5 (5-7) 10/15/24 15:25 Ur Specific [place] 1.020 (1.005-1.030) 10/15/24 15:25 Urine Protein Negative (Negative) 10/15/24 15:25 Urine Glucose (UA) Negative (Normal) 10/15/24 15:25 Urine Ketones Negative (Negative) 10/15/24 15:25 Urine Blood Negative (Negative) 10/15/24 15:25 Urine Nitrate Negative (Negative) 10/15/24 15:25 Urine Bilirubin Negative (Negative) 10/15/24 15:25 Urine Urobilinogen 0.2 mg/dL (Negative) 10/15/24 15:25 Ur Leukocyte Esterase Negative (Negative) 10/15/24 15:25 Urine RBC 0-2 /hpf (0-2) 10/15/24 15:25 Urine WBC 0-5 /hpf (0-5) 10/15/24 15:25 Ur Squamous Epith Cells 0-5 /hpf (0-5) 10/15/24 15:25 Amorphous Sediment Not Reportable 10/15/24 15:25 Urine Bacteria None seen /hpf (NONE) 10/15/24 15:25 Hyaline Casts 0-4 /lpf H 10/15/24 15:25 Urine Opiates Screen Negative ng/mL (Negative) 10/15/24 15:25 Ur Barbiturates Screen Negative ng/mL (Negative) 10/15/24 15:25 Ur Phencyclidine Scrn Negative ng/mL (Negative) 10/15/24 15:25 Ur Amphetamines Screen Negative ng/mL (Negative) 10/15/24 15:25 U Benzodiazepines Scrn Negative ng/mL (Negative) 10/15/24 15:25 Urine Cocaine Screen Negative ng/mL (Negative) 10/15/24 15:25 U Marijuana (THC) Screen Negative ng/mL (Negative) 10/15/24 15:25 Vitals Last Vital Signs Temp 98.0 F 10/16/24 04:00 Pulse 63 10/16/24 08:37 Resp 24 H 10/16/24 08:37 BP 109/69 10/16/24 08:37 Pulse Ox 94 10/16/24 08:37 O2 Del Method Room Air 10/16/24 04:00 Discharge Plan Discharge Patient Disposition: Home Condition: Stable Prescriptions: New aspirin 325 mg Tablet,Delayed Release (Dr/Ec) 325 mg PO DAILY Qty: 30 0RF metoprolol tartrate 25 mg Tablet 12.5 mg PO BID@0900,2100 PRN (Reason: HR more than 100 bpm) Qty: 15 0RF No Action No Known Home Medications Discharge Order = DC NOW: Discharge Order (Routine); Ordered 10/16/24 Ordered By: Dino Trammell Other Ambulatory Orders: MCT/Event Monitor 21 Days (Routine) Timeframe: 1 Week Facility: [facility] - Location: Radiology Ordered By: Dino Trammell Discharge Diet: Cardiac Patient Instructions: Opioid Safety, Patient Portal & Shane Instructions Discharge Attestations Time Spent in Discharge Care*: greater than 30 min Specific Discharge Activities: educating patient, educating and/or supporting family/caregiver, discussing with pcp/other providers, discussing with continuous pillowcase cutter/social workers/dc planners, documenting/other paperwork and evaluating patient/reviewing data Status at Discharge: Cognitive status at discharge: cognitively intact, Behavioral status at discharge: cooperative, Functional status at discharge: independent ambulation, Overall status at discharge: patient is back to baseline Quality Metrics Clinical Quality Measures [ No reported AMI, CVA or VTE this stay] Coding Level of Care Code 18126 Total time (in minutes) for Discharge: 65 Diagnoses Paroxysmal atrial fibrillation I48.0 Atrial fibrillation type: paroxysmal
--- NOTE | 2024-10-16 11:29 | PC.NURSE ---
Patient has PCP in [place]- [facility] will set up F/U appointment.
[2024-10-16 11:41] VITALS: BP 115/60; PULSE 56; RESP 15; O2SAT 97
== END 2024-10-16 12:16 | disposition home or self-care (01) | DRG 310 ==
LOC: ER 13:52 → CSU 15:01
PROVIDERS: Admitting Provider Student in an Organized Health Care Education/Training Program; Emergency Provider Emergency Medicine; Visit Provider Student in an Organized Health Care Education/Training Program
DX: I48.0 Paroxysmal atrial fibrillation (principal); Z79.82 Long term (current) use of aspirin
CPT/HCPCS: 36415; 71045; 80053; 80306; 81001; 83735; 84100; 84145; 84443; 85025; 93005; 93306; 94664; 96365; 96366; 96375; 99285; J3490; J9999